=== PATIENT | male | born 1960 | race Caucasian/White ===

== ENCOUNTER 2022-04-02 16:03 | Inpatient (IN) | payer OTHER ==
[~2022-04-02 16:03] MED LIST: propofoL 0 ML ONE
[2022-04-02] MEDS ORDERED: Sodium Chloride 0.9% 1,000 ML IV SCH (16:15)
[2022-04-02 17:16] LABS: HEMOGLOBIN A1C 11.7 %
[2022-04-02 17:24] LABS: CORONAVIRUS COVID-19 NAA POSITIVE (NEGATIVE)
[2022-04-02] MEDS ORDERED: Insulin Regular, Human 100 Units/ML 3 ML Vial SUBCUT ONE ×2 (17:56→22:30)
[2022-04-02] MEDS ORDERED: Acetaminophen 325 MG Tab PO ONE (17:58)
[2022-04-02] MEDS ORDERED: Lactated Ringers 1,000 ML IV SCH (18:00)
[2022-04-02] MEDS ORDERED: EPINEPHrine 1 MG/ML SDV IM PRN (19:17)
[2022-04-02] MEDS ORDERED: methylPREDNISolone Sodium Succinate 125 MG/2 ML SDV IVPUSH PRN (19:17)
[2022-04-02] MEDS ORDERED: diphenhydrAMINE 50 MG/ML SDV IVPUSH PRN (19:17)
[2022-04-02] MEDS ORDERED: Famotidine 20 MG/2 ML SDV IVPUSH PRN (19:17)
[2022-04-02] MEDS ORDERED: Sodium Chloride 0.9% 10 ML Syringe FLUSH SCH (19:30)
[2022-04-03] MEDS: Insulin Regular, Human 100 Units/ML 3 ML Vial SUBCUT SCH ×2 (01:54→05:22)
[2022-04-03] MEDS ORDERED: 50% Dextrose in Water 50 ML Syringe IVPUSH PRN (07:22)
[2022-04-03] MEDS: Sodium Chloride 0.45% 1,000 ML IV SCH ×2 (08:19→21:49)
[2022-04-03] MEDS ORDERED: Magnesium Sulfate/Water 2 GM in Premix Bag 1 BAG IV ONE (08:35)
[2022-04-03] MEDS ORDERED: Docusate Sodium 100 MG Cap PO PRN (08:41)
[2022-04-03] MEDS ORDERED: Ondansetron 4 MG/2 ML SDV IV PRN (08:41)
[2022-04-03] MEDS ORDERED: Acetaminophen 325 MG Tab PO PRN (08:41)
[2022-04-03] MEDS ORDERED: LORazepam 1 MG Tab PO PRN (08:49)
[2022-04-03] MEDS: Enoxaparin 40 MG/0.4 ML Syringe SUBCUT SCH (09:30)
[2022-04-03] MEDS: Insulin Glargine,Human Rec. Analog 100 Units/ML 3 ML Pen SUBCUT SCH (09:31)
[2022-04-03] MEDS: Potassium Chloride 20 MEQ Tab.ER PO SCH ×2 (09:33→20:51)
[2022-04-03] MEDS: Lisinopril 5 MG Tab PO SCH (09:44)
[2022-04-03] MEDS: Aspirin 81 MG Tab.Chew PO SCH (09:45)
[2022-04-03] MEDS: Insulin Lispro 100 Unit/ML 3 ML KwikPen SUBCUT SCH ×3 (12:05→21:48)
[2022-04-03] MEDS ORDERED: Insulin Regular, Human 100 Units/ML 3 ML Vial SUBCUT SCH (21:00)
[2022-04-03] MEDS ORDERED: Rosuvastatin 10 MG Tab PO SCH (21:00)
[2022-04-04] MEDS ORDERED: Insulin Glargine,Hum.Rec.Anlog 100 UNIT/ML 3 ML Pen SUBCUT SCH
[2022-04-04] MEDS ORDERED: Insulin Lispro 100 Unit/ML 3 ML KwikPen SUBCUT SCH
[2022-04-04] MEDS ORDERED: Magnesium Sulfate/Water 4 GM in Premix Bag 1 BAG IV ONE (07:45)
[2022-04-04] MEDS: Insulin Lispro 100 Unit/ML 3 ML KwikPen SUBCUT SCH ×2 (08:18→11:57)
[2022-04-04] MEDS: Insulin Glargine,Human Rec. Analog 100 Units/ML 3 ML Pen SUBCUT SCH (08:18)
[2022-04-04] MEDS: Lisinopril 5 MG Tab PO SCH (08:22)
[2022-04-04] MEDS: Aspirin 81 MG Tab.Chew PO SCH (08:22)
[2022-04-04] MEDS: Enoxaparin 40 MG/0.4 ML Syringe SUBCUT SCH (08:22)
[2022-04-04] MEDS: Potassium Chloride 20 MEQ Tab.ER PO SCH (08:22)
== END 2022-04-04 12:55 | disposition home or self-care (01) | DRG 177 ==
LOC: JD.ED 16:03 → JD.MS 19:20
PROVIDERS: ADMIT Internal Medicine Cardiovascular Disease; ATTEND Pediatrics
PROC: 8E0ZXY6 Isolation (ICD-10-PCS; principal; 2022-04-02)
DX: U07.1 COVID-19 (principal); G93.41 Metabolic encephalopathy; E87.1 Hypo-osmolality and hyponatremia; E87.6 Hypokalemia; E83.42 Hypomagnesemia; H40.9 Unspecified glaucoma; E11.65 Type 2 diabetes mellitus with hyperglycemia; E78.5 Hyperlipidemia, unspecified; E86.0 Dehydration; H54.61 Unqualified visual loss, right eye, normal vision left eye; Z91.19 Patient's noncompliance with other medical treatment and regimen; Z79.82 Long term (current) use of aspirin; Z79.4 Long term (current) use of insulin; N40.0 Benign prostatic hyperplasia without lower urinary tract symptoms; Z98.49 Cataract extraction status, unspecified eye; Z87.891 Personal history of nicotine dependence
CPT/HCPCS: 0240U; 36415; 70450; 70450-26; 71045; 71045-26; 80048; 80053; 80061; 80306; 80307; 81003; 82009; 82043; 82570; 82947; 83036; 83605; 83735; 83880; 84443; 85025; 85610; 85652; 85730; 86140; 87040; 93005; 93010; 94667; 96360; 96361; 97162-GP; 97166-GO; 99222; 99233; 99239; 99284; 99285-25; A9270-GY; J1650; J1815; J1815-GY; J3475; J7030; J7120; Q0222